=== PATIENT | female | born 1990 | race African-American/Black ===

== ENCOUNTER 2022-03-14 02:27 | Observation (INO) ==
[2022-03-14] MEDS ORDERED: ALBUTEROL/IPRATROPIUM 3 ML NEB RESP TX STA ×3 (02:39→03:38)
[2022-03-14] MEDS ORDERED: MAGNESIUM SULF RIDER 2 GM/50 ML PREMIX IV STA (02:42)
[2022-03-14 02:50] LABS: Basophils # 0.1 10*3/uL (0.0-0.2); Basophils % 0.6 % (0.0-0.8); Eosinophils # 0.9 10*3/uL (0.0-0.87); Eosinophils % 10.4 % (0.00-10.9); Hematocrit 39.4 VOL% (35.7-47.0); Hemoglobin 12.5 GM/DL (12.0-16.0); Immature Granulocytes % 0.3 %; Immature Granulocytes Absolute 0.03 #; Lymphocytes # 3.7 10*3/uL (1.4-4.0); Mean Corpuscular HGB Conc 31.7 GM/DL (32-36); Mean Corpuscular Volume 82.8 FL (87-102); Mean Platelet Volume 10.8 FL (9.6-12.0); Monocytes # 0.8 10*3/uL (0.11-0.8); Monocytes % 8.5 % (1.7-12.7); Neutrophils % 39.2 % (38.7-73.9); Platelet Count 271 T/CUMM (130-400); Red Blood Count 4.76 MC/CUMM (3.8-5.5); Red Cell Distribution Width 14.1 % (9.3-17.3); White Blood Count 8.9 T/CUMM (4-12)
[2022-03-14 03:12] LABS: Albumin 3.6 G/DL (3.4-5.0); Bilirubin,Total 0.4 MG/DL (0.20-1.00); Calcium 8.8 MG/DL (8.5-10.1); Osmolality,Calculated 280.3 MOS/KG (273-304); Potassium 3.3 MMOL/L (3.5-5.1); Total Protein 7.6 G/DL (6.4-8.2)
[2022-03-14] MEDS ORDERED: POTASSIUM CHLORIDE 20 MEQ TABLET PO STA (03:26)
[2022-03-14] MEDS ORDERED: ONDANSETRON 4 MG/2 ML VIAL IV PRN (04:51)
[2022-03-14] MEDS ORDERED: SIMETHICONE CHEW 125 MG TABLET PO PRN (04:51)
[2022-03-14] MEDS ORDERED: GLUCAGON 1 MG VIAL IM PRN (04:51)
[2022-03-14] MEDS ORDERED: ALBUTEROL 2.5 MG/3 ML NEB RESP TX PRN (04:51)
[2022-03-14] MEDS ORDERED: DEXTROSE 10% 250 ML BAG IV PRN (05:11)
[2022-03-14] MEDS ORDERED: MAGNESIUM SULF RIDER 4 GM/100 ML PREMIX IV PRN (05:26)
[2022-03-14] MEDS ORDERED: POTASSIUM CHLORIDE RIDER 10 MEQ/100 ML PREMIX IV PRN (05:26)
[2022-03-14] MEDS ORDERED: MAGNESIUM SULF RIDER 2 GM/50 ML PREMIX IV PRN (05:26)
[2022-03-14] MEDS ORDERED: POTASSIUM CHLORIDE 20 MEQ TABLET PO PRN (05:26)
[2022-03-14] MEDS ORDERED: methylPREDNISolone SOD SUC 125 MG/2 ML VIAL IV STA (05:48)
[2022-03-14] MEDS: FEXOFENADINE 180 MG TABLET PO SCH (10:46)
[2022-03-14] MEDS: PANTOPRAZOLE 40 MG TABLET PO SCH (10:46)
[2022-03-14] MEDS: BUDESONIDE/FORMOTEROL 160-4.5 INHALER 6 GM INH SCH ×2 (11:36→21:52)
[2022-03-14] MEDS ORDERED: PROCHLORPERAZINE 10 MG TABLET PO PRN (13:56)
[2022-03-14] MEDS: methylPREDNISolone SOD SUC 125 MG/2 ML VIAL IV SCH ×2 (15:05→18:37)
[2022-03-14] MEDS ORDERED: MONTELUKAST 10 MG TABLET PO SCH (21:00)
[2022-03-15] MEDS: methylPREDNISolone SOD SUC 125 MG/2 ML VIAL IV SCH ×2 (00:32→06:49)
[2022-03-15 05:31] LABS: Basophils % 0.1 % (0.0-0.8); Hematocrit 39.4 VOL% (35.7-47.0); Hemoglobin 12.6 GM/DL (12.0-16.0); Immature Granulocytes % 0.6 %; Immature Granulocytes Absolute 0.09 #; Lymphocytes # 0.9 10*3/uL (1.4-4.0); Lymphocytes % 6.2 % (21.3-54.2); Mean Corpuscular Volume 83.3 FL (87-102); Mean Platelet Volume 11.1 FL (9.6-12.0); Monocytes # 0.3 10*3/uL (0.11-0.8); Monocytes % 2.1 % (1.7-12.7); Platelet Count 244 T/CUMM (130-400); Red Blood Count 4.73 MC/CUMM (3.8-5.5); Red Cell Distribution Width 13.9 % (9.3-17.3); White Blood Count 14.6 T/CUMM (4-12)
[2022-03-15 05:41] LABS: Calcium 8.8 MG/DL (8.5-10.1); Osmolality,Calculated 278.7 MOS/KG (273-304); Potassium 3.8 MMOL/L (3.5-5.1)
[2022-03-15 07:30] LABS: Lymphocytes 6 % (20-55); Platelet Estimate Normal; Total Cells Counted 100
[2022-03-15 08:09] VITALS: BP 118/58
[2022-03-15] MEDS: PANTOPRAZOLE 40 MG TABLET PO SCH (09:16)
[2022-03-15] MEDS: FEXOFENADINE 180 MG TABLET PO SCH (09:16)
[2022-03-15] MEDS: BUDESONIDE/FORMOTEROL 160-4.5 INHALER 6 GM INH SCH (09:23)
[2022-03-15] MEDS ORDERED: FLUTICASONE 50 MCG NASAL SPRAY 16 GM BOTTLE BOTH NARES SCH (10:12)
[2022-03-15] MEDS ORDERED: methylPREDNISolone SOD SUC 40 MG/1 ML VIAL IV SCH (14:30)
== END 2022-03-15 11:30 | disposition home or self-care (01) ==
LOC: EDBD → N.TELES 02:27 → N.ED 02:27 → N.TELES 06:30
PROVIDERS: ADMIT Internal Medicine; ATTEND Internal Medicine